=== PATIENT | female | born 1980 | race Caucasian/White ===

== ENCOUNTER 2020-07-23 14:40 | Emergency (ER) | payer OTHER ==
[~2020-07-23] VITALS: Ht 162.6 cm; Wt 93.9 kg
[~2020-07-23 14:40] MED LIST: ADIPEX-P37.5 M1; BACTRIM DS TAB1 EACH PO; CELEBREX 200 M200 M1 PO; DARVOCET-N 1001 EACH PO; MOBIC15 MG PO; NOHOMEMEDICATIONS; NORCO 10-325 T1 EACH PO; NORCO 5-325 TA1 EACH PO; TRAMADOL 50 MG50 MG PO; VENTOLIN HFA INH8 GM IH; ZANAFLEX4 M2 PO; ZPAK PO
[2020-07-23 16:38] LABS: URINE BILIRUBIN NEGATIVE (Negative); URINE BLOOD NEGATIVE (Negative); URINE CLARITY CLEAR; URINE COLOR YELLOW; URINE GLUCOSE-RANDOM NEGATIVE (Negative); URINE KETONES TRACE (Negative); URINE LEUKOCYTES-REFLEX NEGATIVE (Negative); URINE NITRITE-REFLEX NEGATIVE (Negative); URINE PROTEIN TRACE (Negative); URINE UROBILINOGEN 0.2 E.U./dl (0.2-1.0)
[2020-07-23 16:47] LABS: ABSOLUTE BASOPHILS 0.1 thou/uL (0.0-0.2); ABSOLUTE EOSINOPHILS 0.1 thou/uL (0.0-0.7); ABSOLUTE LYMPHOCYTES 1.7 thou/uL (0.8-5.3); ABSOLUTE MONOCYTES 0.5 thou/uL (0.0-1.2); ABSOLUTE NEUTROPHILS 6.2 thou/uL (1.6-8.1); BASOPHILS 0.6 %; EOSINOPHILS 1.4 %; HEMATOCRIT 36.9 % (37.0-47.0); HEMOGLOBIN 12.3 gm/dL (12.0-15.0); LYMPHOCYTES 19.8 %; MCH 28.5 pg (26.0-34.0); MCHC 33.3 g/dL (28.0-37.0); MCV 85.8 fL (80.0-100.0); MONOCYTES 6.2 %; MPV 6.5 fl. (7.2-11.1); NUCLEATED RBCS 0 /100WBC; PLATELET COUNT* 318 thou/uL (150-400); RDW-CV 13.9 % (10.5-14.5); WBC 8.6 thou/uL (4.0-11.0)
[2020-07-23 16:54] LABS: CALCIUM 8.5 mg/dL (8.5-10.1); CREATININE 0.9 mg/dL (0.6-1.3); POTASSIUM 3.8 mmol/L (3.5-5.1)
[2020-07-23 16:58] LABS: ALBUMIN 3.3 g/dL (3.4-5.0); TOTAL BILIRUBIN 0.6 mg/dL (<0.1-1.0); TOTAL PROTEIN 6.6 g/dL (6.4-8.2)
[2020-07-23] MEDS ORDERED: HYDROCODON-ACE1 EAC7 PO (18:33)
[2020-07-23] MEDS ORDERED: ONDANSETRON ODT4 MG PO (18:33)
[2020-07-23 18:40] VITALS: BP 156/85
--- NOTE | 2020-07-24 10:14 | EKG ---
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 External: : 1980 Requested By: Sohail Wilks Order Number: [id number] MD: Christopher Pérez Measurements Intervals [place] Rate: 68 P: 34 MD: 165 QRS: 39 QRSD: 103 T: 36 QT: 407 QTc: 433 Interpretive Statements Sinus rhythm Low voltage, precordial leads Baseline wander in lead(s) II,aVF,V4,V6 No previous ECG available for comparison Electronically Signed On 07-24-2020 10:14:38 GALLERY ASSISTANT by Christopher Pérez [email or web address] <ELECTRONICALLY SIGNED> By: Christopher Pérez MD, FACC 07/24/20 1014 1713 1713 Christopher Pérez MD, [facility] /EPI
== END 2020-07-23 18:40 | disposition home or self-care (01) ==
LOC: M.ERS 14:40
PROVIDERS: Physician Assistant
DX: R10.31 Right lower quadrant pain (principal); R10.32 Left lower quadrant pain; Z79.899 Other long term (current) drug therapy; Z98.890 Other specified postprocedural states; Z98.51 Tubal ligation status